=== PATIENT | male | born 1995 | race Caucasian/White ===

== ENCOUNTER 2016-10-25 13:25 | Observation (INO) | payer BC ==
[2016-10-25] MEDS ORDERED: Ondansetron INJ* 2 MG/ML VIAL IV PRN (16:09)
[2016-10-25 17:14] LABS: Hematocrit 40 % (42-52)
[2016-10-25] MEDS: NS 0.9% 1000 ML* 1,000 ML IV SCH (17:20)
[2016-10-25] MEDS ORDERED: Acetaminophen TAB* 325 MG PO PRN (19:39)
--- NOTE | 2016-10-26 00:36 | HP ---
HISTORY AND PHYSICAL: DATE OF ADMISSION: 10/25/16 PRIMARY CARE PROVIDER: Dr. Razo. CHIEF COMPLAINT: Bloody stool. HISTORY OF PRESENT ILLNESS: Mr. Sullivan is a 20-year-old male with a past history of hypothyroidism as a child, which now has resolved and what sounds to be allergic rhinitis who presents to the emergency room at [facility] with complaints of bloody stools. The patient states that over the last couple months to weeks, he has been trying to treat his allergic rhinitis with changes in diet and supplements. The patient has gone to a gluten-free, dairy-free diet. He is not on these for medical needs, but only to try clear up his nasal congestion. Additionally, he states that he was referred to ENT by his primary care provider who did not feel that there was any significant mechanical obstruction causing his congestion. The patient's mom had a friend who felt that they did well with chiropractor in [facility] and therefore the patient was referred to this individual for therapy. The patient was started on 5 different supplements to try to treat his condition. The patient has been taking these fairly routinely, but not religiously. The patient states in general he has been feeling well until yesterday when he had 2 liquid, very dark bloody bowel movements. These were dark red in color. The patient states he has not really had any abdominal pain. He got up on the morning of admission and before he even started having a bowel movement, noticed blood in the toilet and therefore presented to [facility] for evaluation. At [facility], the patient was found to have a hemoglobin of 13.7. The decision was made to transfer the patient to [facility] for potential GI evaluation and monitoring in case, he begins to bleed more heavily. In the emergency room at [place], the patient did undergo a rectal exam where a copious amount of selina-colored stool was encountered. Upon arrival to [facility], the patient was feeling well. He has no abdominal pain. He is a little nervous about his current situation. PAST MEDICAL HISTORY: Hypothyroidism as a child. Otherwise, no significant medical history other than allergic rhinitis. PAST SURGICAL HISTORY: None. MEDICATIONS: 1. Gentian root extract 2 tabs 3 times daily. 2. ParaBotanic Select 3 tabs 3 times daily. 3. MegaSporeBiotic 1 tab twice daily. 4. Gastrin just 2 tabs with each meal. 5. Undecyn 3 tabs p.o. b.i.d. ALLERGIES: None. FAMILY HISTORY: Mom is living and healthy. Dad is living and healthy. SOCIAL HISTORY: The patient is a nonsmoker. He does not drink alcohol. 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 He is not . He has no children. REVIEW OF SYSTEMS: All pertinent positives and negatives as per HPI and otherwise negative. PHYSICAL EXAMINATION GENERAL: The patient is a well-developed, young male, sitting in the bed, in no acute distress. VITAL SIGNS: Blood pressure 131/50, pulse 51, respirations 16, temp 97.9, O2 sat 99% on room air. HEENT: Pupils are equal. They are round, reactive to light. Extraocular muscles are intact. Oropharynx is clear. Oral mucosa is moist. There is no submandibular, cervical, or supraclavicular adenopathy. NECK: Thyroid is not enlarged. No thyroid nodules are noted. PULMONARY: Lungs are clear to auscultation bilaterally. CARDIAC: Normal S1, S2. Regular rate and rhythm. I do not appreciate any murmurs, rubs, or gallops. ABDOMEN: Bowel sounds present. Abdomen is soft, nontender, nondistended. MUSCULOSKELETAL: There is no cyanosis or clubbing of the digits. There is full active range of motion. SKIN: Warm and dry. There are no rashes. NEUROLOGIC: Cranial nerves II through XII are grossly intact. Sensation is intact to light touch throughout. Strength is 5/5 and symmetric in both upper and lower extremities bilaterally. PSYCH: The patient is alert. He is oriented x3. Affect appears appropriate. LABORATORY DATA AND DIAGNOSTIC STUDIES: Sodium 143, potassium 4.1, chloride 106, CO2 26, BUN 8, creatinine 0.9, glucose 79, calcium 8.9. Bilirubin 0.6, AST 15, ALT 23, alk phos 61, albumin 3.9. INR 1.08. WBC 4.9, hemoglobin 13.7, hematocrit 41.4, platelets 247. Urinalysis reveals specific gravity of 1.019, 1 + ketones, 1+ bilirubin. Otherwise negative. ASSESSMENT AND PLAN: Mr. Sullivan is a 20-year-old male with no significant past medical history who has been taking GI supplements who now presents to the emergency room with complaints of bloody stools. 1. Probable lower GI bleed: The patient has not described very frequent bloody bowel movements. His hemoglobin has remained relatively stable. Followup hemoglobin obtained upon arrival to [facility] reveals that his hemoglobin is still 13.0. This will be followed up tomorrow morning. The patient will be seen in consultation by GI. It was not completely clear whether or not he will need flexible sigmoidoscopy or colonoscopy at this point. If his H and H drop significantly, this will likely be needed, but if he is stable, he could likely have this done this as an outpatient. 2. History of hypothyroidism: The patient will have a TSH obtained tomorrow morning; however, his mom states that previous TSH levels have been in the appropriate range on followup. 3. DVT prophylaxis: According to the Adult Thrombosis Prophylaxis Risk Factor Assessment Guide, the patient has a total risk factor score of 1 making him low risk. He will be utilizing ambulation for DVT prophylaxis. 4. Code status is full and again, the patient indicates that his mom would be his surrogate decision maker. TIME SPENT: 55 minutes were spent admitting this patient. CC: Dr. Razo* [id number]/[facility] #: [id number] VIPIN
[2016-10-26] MEDS: NS 0.9% 1000 ML* 1,000 ML IV SCH (03:31)
[2016-10-26 07:05] LABS: Hematocrit 39 % (42-52); Hemoglobin 12.6 g/dl (14.0-18.0); Mean Corpuscular HGB Conc 33 g/dl (31-36); Mean Corpuscular Hemoglobin 30 pg (27-31); Mean Corpuscular Volume 90 fL (80-94); Mean Platelet Volume 8 um3 (7.4-10.4); Red Blood Count 4.27 10^6/ul (4.0-5.4); Red Cell Distribution Width 13 % (10.5-15); White Blood Count 5.5 10^3/ul (3.5-10.8)
[2016-10-26 07:24] LABS: BUN/Creatinine Ratio 7.9 (8-20); Calcium 8.9 mg/dL (8.6-10.3); EGFR African American 141.6 (>60); EGFR Non-African American 110.1 (>60)
[2016-10-26 07:36] LABS: TSH (Thyroid Stimulating Horm) 2.11 mcIU/mL (0.34-5.60)
--- NOTE | 2016-10-26 10:27 | PN ---
Subjective Date of Service: 10/26/16 Interval History: Pt is feeling well. No stools this am but he had another bloody stool last night. Same volume of stool. He states it was "quite a bit." No abdominal pain. Objective Active Medications: Acetaminophen (Tylenol Tab*) 650 mg PO Q4H PRN PRN Reason: PAIN Sodium Chloride (Ns 0.9% 1000 Ml*) 1,000 mls @ 100 mls/hr IV PER RATE JOSÉ MIGUEL Last Admin: 10/26/16 03:31 Dose: 100 mls/hr Ondansetron HCl (Zofran Inj*) 4 mg IV Q6H PRN PRN Reason: NAUSEA Vital Signs 10/25/16 10/25/16 10/25/16 16:37 16:38 17:52 Temperature 97.6 F 97.9 F Pulse Rate 57 51 Respiratory 16 16 16 Rate Blood Pressure 147/69 131/50 (mmHg) O2 Sat by Pulse 100 99 Oximetry 10/25/16 10/26/16 10/26/16 23:23 00:15 03:14 Temperature 98.3 F 97.4 F Pulse Rate 48 41 Respiratory 16 16 Rate Blood Pressure 126/54 131/47 (mmHg) O2 Sat by Pulse 97 100 Oximetry 10/26/16 10/26/16 07:38 08:00 Temperature 97.6 F Pulse Rate 55 Respiratory 17 17 Rate Blood Pressure 120/43 (mmHg) O2 Sat by Pulse 99 Oximetry Oxygen Devices in Use Now: None Appearance: Young male sitting up in bed, NAD Eyes: No Scleral Icterus Ears/Nose/Mouth/Throat: Mucous Membranes Moist Respiratory: Symmetrical Chest Expansion and Respiratory Effort, Clear to Auscultation Cardiovascular: NL Sounds; No Murmurs; No JVD, RRR, No Edema Abdominal: NL Sounds; No Tenderness; No Distention Extremities: No Clubbing, Cyanosis Skin: No Rash or Ulcers, No Nodules or Sclerosis Neurological: Alert and Oriented x 3 Result Diagrams: 10/26/16 06:11 10/26/16 06:11 Assess/Plan/Problems-Billing Mr Sullivan is a 20 yo M who has a h/o hypothyroidism as a child and allergic rhinitis who presented to the ER with c/o bloody stools. - Patient Problems (1) GI bleed Current Visit: Yes Status: Acute Code(s): K92.2 - GASTROINTESTINAL HEMORRHAGE, UNSPECIFIED SNOMED Code(s): 41848598 Comment: Likely lower as he is having red stools so I would think that if this was a brisk upper GI bleed he would likely be more acutely ill. Continue clear liquid diet for now. Await GI consultation this afternoon. I suspect he will need a colonoscopy but it is not clear he needs it while hospitalized as he is hemodynamically stable with a stable H/H. (2) DVT prophylaxis Current Visit: Yes Status: Acute Code(s): [id number] - SNOMED Code(s): 925739730 Comment: ambulation (3) Full code status Current Visit: Yes Status: Acute Code(s): Z78.9 - OTHER SPECIFIED HEALTH STATUS SNOMED Code(s): 476299837
[2016-10-26 12:15] VITALS: BP 129/59
--- NOTE | 2016-10-26 16:01 | CONS ---
CONSULTATION REPORT: DATE OF CONSULT: 10/26/16 REASON FOR CONSULT: Rectal bleeding. HISTORY OF PRESENT ILLNESS: Mr. Sullivan is a healthy 20-year-old gentleman, who presents with 2 days of bright red blood per rectum. The patient states that about 2 days ago, quite suddenly, he had a bowel movement where he noticed a fair amount of blood that was dark in color, but not black. He also thought his stools were a little bit softer at that time. This reoccurred the next day at which time he went to an outside emergency room for evaluation. At that emergency room, he was found to have a hemoglobin of 13.7 and the ER physician, on rectal exam, demonstrated selina colored stool and he was therefore transferred to our facility. He was admitted overnight, he had one bowel movement last night, which was formed. He believed there was some blood in it, but no further bowel movements. Prior to 2 days ago, he had no history of rectal bleeding, he had been feeling well; he has no associated abdominal pain, pain on defecation, nausea, or vomiting. He has been dealing with allergic rhinitis and has been followed by a homeopath, he was placed on a gluten-free diet and given many supplements starting about 2 or 3 months ago. Due to that he has lost a fair amount of weight, perhaps 15 or 20 pounds, but feels otherwise well. PAST MEDICAL HISTORY: He has no other past medical history other than for hypothyroidism as a child. MEDICATIONS: Just supplements. He does not take aspirin or NSAIDs. FAMILY HISTORY: Notable for a grandparent who had diverticular disease, but no family history of colon cancer or irritable bowel disease. REVIEW OF SYSTEMS: He denies any heartburn, hematemesis, back pain, or jaundice. He has had no oral lesions or skin rashes. PHYSICAL EXAMINATION: He is a well-appearing, well-developed young gentleman, in no acute distress. His blood pressure is 129/59, heart rate is 49 and regular, he is afebrile, he is not pale. Lungs are clear. Cardiac exam reveals a regular rhythm without murmur. Abdomen is soft without tenderness or organomegaly and bowel sounds are normoactive. On perianal inspection, there is no perianal lesion such as fissure or hemorrhoid. On palpation, there is no palpable lesion and there is brown stool in the rectal vault that is guaiac positive. LABORATORY DATA: Include a hemoglobin of 12.6, white count of 5.5, MCV of 90, BUN of 7, and creatinine of 0.89. IMPRESSION: Young gentleman presenting with 2 to 3 days of bright red blood per rectum. He has had no constitutional symptoms, he has had no diarrhea. His bleeding seems to be modest given his fairly normal hemoglobin and currently he has no visible blood on rectal exam. I discussed with both him and his mother possible etiologies including internal hemorrhoids, inflammatory condition such as colitis or proctitis or even juvenile colon polyps. Given how stable he is, I do believe he can be discharged and I will make arrangements for him to have an outpatient sigmoidoscopy and my office will contact him to arrange that. He was told that if he were to have any recurrence of bleeding he would need to contact us or report back to the emergency room. CC: Dr. Razo* [id number]/[facility] #: [id number] MTDMarci
--- NOTE | 2016-10-27 05:04 | DS ---
DISCHARGE SUMMARY: DATE OF ADMISSION: 10/25/16 DATE OF DISCHARGE: 10/26/16 PRIMARY CARE PROVIDER: Dr. Razo. PRINCIPAL DIAGNOSIS: Rectal bleeding. SECONDARY DIAGNOSIS: Allergic rhinitis. DISCHARGE MEDICATIONS: Tylenol 650 mg p.o. q.4 hours p.r.n. pain. HOSPITAL COURSE: Mr. Sullivan is a 20-year-old male who presented to the emergency room at [facility] on 10/25/16 with complaints of rectal bleeding. The patient had been taking a GI cleanse at home as prescribed by chiropractor. The patient states that he had been taking this for approximately 1 week. The patient, the night prior to presentation, had 2 bloody bowel movements. He had no other associated symptoms including abdominal pain or lightheadedness. The morning of presentation, the patient had another bloody bowel movement. At that point, he presented to [place] for evaluation. At [facility], the patient was found to have a hemoglobin of 13.7 and transferred to [facility] for further evaluation. Once the patient arrived to [facility], his hemoglobin trended down to 13.0 and ultimately down to 12.6 on the day of discharge. The patient did have 1 further bloody bowel movement on the evening of 10/25/16. The patient was seen in consultation by Dr. Maldonado on 10/26/16. At that point, he performed a rectal exam, where brown stool was noted. This was, however, heme-positive. Given how stable the patient is, it was felt that the patient could be discharged home today to follow back up with Dr. Maldonado next week (during the patient's spring break). The patient and his mother are in agreement of this plan. He has been instructed to return to the emergency room for any further rectal bleeding or any other concerning symptoms. FOLLOWUP CONCERNS: The patient is being discharged home today on 10/26/16. He is to follow up with Dr. Razo in the next 4 to [address] Maldonado next week. He will be contacted by Dr. Yee's office with an appointment date and time. ACTIVITY: Activity level is as tolerated. DIET: Regular. CONDITION ON DISCHARGE: Stable. TIME SPENT: Twenty minutes was spent discharging this patient. CC: Dr. Razo* [id number]/[facility] #: [id number] [facility]
== END 2016-10-26 16:00 | disposition home or self-care (01) ==
LOC: MED 16:10 → INTOOBSV 16:10
PROVIDERS: ADMIT Hospitalist; ATTEND Hospitalist
DX: K62.5 Hemorrhage of anus and rectum (principal); J30.9 Allergic rhinitis, unspecified; Z79.899 Other long term (current) drug therapy
CPT/HCPCS: 36415; 80048; 84443; 85014; 85018; 85027; G0378